=== PATIENT | female | born 1950 | race Caucasian/White ===

== ENCOUNTER → 2021-10-21 | Outpatient (CLI) | payer BC, MEDICARE | END | disposition home or self-care (01) | LOC: LAB 18:33 → LAB SHORT 18:33 | DX: N39.0 Urinary tract infection, site not specified (principal) | CPT/HCPCS: 87086 ==

== ENCOUNTER → 2021-11-09 | Outpatient (CLI) | payer BC, MEDICARE | END | disposition home or self-care (01) | LOC: LAB SHORT 17:36 | DX: N90.89 Other specified noninflammatory disorders of vulva and perineum (principal); R10.2 Pelvic and perineal pain | CPT/HCPCS: 87070; 87205 ==

== ENCOUNTER 2021-12-09 07:30 | Day surgery (SDC) | payer BC, MEDICARE | END 2021-12-09 12:00 | disposition home or self-care (01) | LOC: MOI US 07:30 → EDSTATUS 08:00 → MOI MAM 08:00 → MOI US 12:00 → MOI MAM 12-30 10:15 | DX: R92.8 Other abnormal and inconclusive findings on diagnostic imaging of breast (principal) | CPT/HCPCS: 19083; 77065; A4648 ==

== ENCOUNTER 2021-12-20 07:42 | Day surgery (SDC) | payer OTHER, BC, MEDICARE ==
[~2021-12-20] VITALS: Ht 170.2 cm; Wt 130.8 kg
[2021-12-20] MEDS ORDERED: BUPR100 PO (08:13)
[2021-12-20] MEDS ORDERED: FAMO10 (08:14)
[2021-12-20] MEDS ORDERED: PANT40 (08:14)
[2021-12-20] MEDS ORDERED: SUMA25 PO (08:14)
== END 2021-12-20 10:58 | disposition home or self-care (01) ==
LOC: ORSCSDS 07:42
PROVIDERS: Orthopaedic Surgery
PROC: 0SBC4ZZ Excision of Right Knee Joint, Percutaneous Endoscopic Approach (ICD-10-PCS; principal; 2021-12-20 08:45)
DX: S83.241A Other tear of medial meniscus, current injury, right knee, initial encounter (principal); S83.281A Other tear of lateral meniscus, current injury, right knee, initial encounter; M17.11 Unilateral primary osteoarthritis, right knee; M22.2X1 Patellofemoral disorders, right knee; M65.9 Synovitis and tenosynovitis, unspecified; G47.33 Obstructive sleep apnea (adult) (pediatric); K21.9 Gastro-esophageal reflux disease without esophagitis; E03.9 Hypothyroidism, unspecified; E66.01 Morbid (severe) obesity due to excess calories; Z68.42 Body mass index [BMI] 45.0-49.9, adult; E78.5 Hyperlipidemia, unspecified; F41.9 Anxiety disorder, unspecified; Z79.899 Other long term (current) drug therapy
CPT/HCPCS: A9270; J0171; J0690; J1100; J2405; J2704; J2795; J3010; J7120

== ENCOUNTER → 2022-03-02 | Outpatient (CLI) | payer BC, MEDICARE ==
[~2022-03-02] MED LIST: BUPR100 PO; FAMO10 PO; PANT40 PO; SUMA25 PO
== END | disposition home or self-care (01) ==
LOC: LAB 12:25 → LAB SHORT 12:25
DX: N61.0 Mastitis without abscess (principal)
CPT/HCPCS: 87070; 87075; 87077; 87186; 87205